=== PATIENT | female | born 1990 | race African-American/Black ===

== ENCOUNTER 2024-01-10 10:47 | Emergency (ER) | payer BC, OTHER ==
[2024-01-10 11:13] VITALS: BMI 38.0
[2024-01-10] MEDS: ACETAMINOPHEN 500 MG TABLET (FP) PO ONE (11:20)
[2024-01-10 11:31] LABS: BASO % 0.3 % (0-2.0); EOS % 0.4 % (0-4.5); HEMATOCRIT 39.4 % (32.4-45.2); HEMOGLOBIN 13.5 GM/dL (10.7-15.3); LYMPH % 36.4 % (8-40); MCH 30.6 pg (25.7-33.7); MCHC 34.2 g/dl (32.0-36.0); MEAN CELL VOLUME 89.5 fl (80-96); NEUT % 56.9 % (42.8-82.8); PLATELET COUNT 220 10^3/uL (134-434); RDW 12.4 % (11.6-15.6); WHITE BLOOD COUNT 7.9 K/mm3 (4.0-10.0)
[2024-01-10 11:32] LABS: INR 1.1 (0.83-1.09); PROTHROMBIN TIME (PATIENT) 12.7 SEC (9.7-13.0)
[2024-01-10 11:35] LABS: ACTIVATED PTT 35.5 SECONDS (25.2-36.5)
[2024-01-10 11:49] LABS: CHLORIDE 105 mmol/L (98-107); POTASSIUM 5.9 mmol/L (3.5-5.1); SODIUM 136 mmol/L (136-145)
[2024-01-10 11:51] LABS: CALCIUM 8.9 mg/dL (8.5-10.1)
[2024-01-10 11:52] LABS: ALBUMIN 3.4 g/dl (3.4-5.0); ANION GAP 4 mmol/L (4-13); CO2 28 mmol/L (21-32); GLUCOSE,RANDOM 91 mg/dL (74-106); MAGNESIUM 2.2 mg/dL (1.8-2.4)
[2024-01-10 11:55] LABS: CREATININE 0.7 mg/dL (0.55-1.3); SGOT/AST 49 U/L (15-37); SGPT/ALT 17 U/L (13-61)
[2024-01-10 11:56] LABS: BILIRUBIN,TOTAL 0.4 mg/dL (0.2-1)
[2024-01-10 11:58] LABS: TOT PROT 7.3 g/dl (6.4-8.2)
[2024-01-10 11:59] LABS: ALK PHOS 86 U/L (45-117)
[2024-01-10 13:31] LABS: EPI CELLS >36 /uL (0-25.1); HYALINE CASTS 2 /uL (0-3.1); URINE APPEARANCE CLEAR; URINE BACTERIA 2924 /uL (0-1359); URINE BILIRUBIN NEGATIVE (NEGATIVE); URINE COLOR YELLOW; URINE GLUCOSE (UA) NEGATIVE (NEGATIVE); URINE KETONE NEGATIVE (NEGATIVE); URINE LEUK ESTERASE TRACE (NEGATIVE); URINE NITRITE NEGATIVE (NEGATIVE); URINE PROTEIN NEGATIVE (NEGATIVE); URINE RBC 35 /uL (0-23.9); URINE UROBILINOGEN 0.2 mg/dL (0.2-1.0); URINE WBC 69 /uL (0-25.8)
[2024-01-10 13:33] LABS: HCG,QUALITATIVE URINE Negative
[2024-01-10] MEDS: ASPIRIN 81 MG CHEWABLE TABLETS PO ONE (13:45)
[2024-01-10] MEDS: SODIUM CHLORIDE 0.9% 500 ML INFUS.BAG IV ONE (14:18)
[2024-01-10 15:34] VITALS: BP 111/60; PULSE 76; RESP 16; TEMP 98.4
== END 2024-01-10 16:00 | disposition home or self-care (01) ==
LOC: JER 10:47
DX: R07.89 Other chest pain (principal)
CPT/HCPCS: 36415; 71046-TC-FY; 80053; 81003; 82550; 82553; 83735; 84484; 84703; 85025; 85610; 85730; 93005; 93010; 93308; 99285-25